=== PATIENT | male | born 1980 | race Caucasian/White ===

== ENCOUNTER 2019-01-30 19:18 | Emergency (ER) | payer SELFPAY ==
[2019-01-30] MEDS ORDERED: Bacitracin Oint 1 GM U/D Packet TOP ONE (20:06)
[2019-01-30] MEDS ORDERED: Lidocaine 1% 20 ML MDV INJECT ONE (20:06)
--- NOTE | 2019-01-30 20:58 | EDM.PDOC ---
ED HPI GENERAL MEDICAL PROBLEM - General Chief Complaint: Laceration Stated Complaint: CUT ON LEG Time Seen by Provider: 01/30/19 19:57 Source of Information: Reports: Patient History Limitations: Reports: No Limitations - History of Present Illness INITIAL COMMENTS - FREE TEXT/NARRATIVE: This gentleman was at home and hit his right lower leg on a piece of metal sustained a laceration just inferior to the right tibial tuberosity. This happened just prior to arrival. - Related Data Allergies Allergy/AdvReac Type Severity Reaction Status Date / Time cefaclor [From Ceclor] Allergy Hives Verified 01/30/19 19:38 Home Meds: Home Meds Albuterol [Proventil HFA] 2 puff INH Q4H PRN 01/30/19 [History] Past Medical History - Past Health History Medical/Surgical History: Denies Medical/Surgical History Respiratory History: Reports: Asthma Social & Family History - Tobacco Use Smoking Status *Q: Never Smoker - Caffeine Use Caffeine Use: Reports: Energy Drinks - Recreational Drug Use Recreational Drug Use: No ED ROS GENERAL - Review of Systems Review Of Systems: ROS reveals no pertinent complaints other than HPI. ED EXAM, SKIN/RASH Exam: See Below Exam Limited By: No Limitations General Appearance: Alert, WD/WN Extremities: Other (There is a laceration which is chevron-shaped or arrowhead shaped with the point directed downwards each leg is 3 cm long for a total length of 6 cm. It's a full thickness down to the muscle fascia of the leg. Does not elkins any of the muscle fascia however. The wound is clean. Neurovascular tendon all intact) Course - Vital Signs Last Recorded V/S: Last Vital Signs Temp 36.6 C 01/30/19 19:48 Pulse 122 H 01/30/19 19:48 Resp 20 01/30/19 19:48 BP 134/84 01/30/19 19:48 Pulse Ox 95 01/30/19 19:48 - Orders/Labs/Meds Meds: Medications Discontinued Medications Generic Name Dose Route Start Last Admin Trade Name Freq PRN Reason Stop Dose Admin Bacitracin 1 dose 01/30/19 20:06 01/30/19 20:18 Bacitracin Oint 1 Gm TOP 01/30/19 20:07 1 dose ONETIME ONE Administration Lidocaine HCl 20 ml 01/30/19 20:06 01/30/19 20:19 Xylocaine 1% INJECT 01/30/19 20:07 20 ml ONETIME ONE Administration - Re-Assessments/Exams Free Text/Narrative Re-Assessment/Exam: 01/30/19 20:55 Procedure laceration repair: The wound was anesthetized with approximately 12 mL of 1% plain lidocaine. Once there was good local anesthesia the wound was then scrubbed with saline and a small amount of Hibiclens. The flap was lifted up that area was scrubbed and it was copiously lavaged with normal saline by syringe. Subcutaneous fascia was then closed with a total of 4 stitches of 4-0 Vicryl. A top stitch was then placed with running 3-0 Ethilon. Giving a good cosmetic result. Bacitracin ointment and a dressing were then applied. Wound care was discussed Departure - Departure Time of Disposition: 20:56 Disposition: Home, Self-Care 01 Condition: Fair Clinical Impression: Laceration of right lower leg - Discharge Information Referrals: PCP,None [Primary Care Provider] - Additional Instructions: Remove the dressing in 2 days. Then every day wash with soap and water or you can just wash it in the shower. Apply some antibiotic ointment and keep it covered with a dressing. See your Dr. or health care provider to have the sutures removed in 10 days. Watch for any signs of infection. Otherwise as long she keep the dressing clean and dry there are no limitations. You should not swim until at least several days after the sutures are removed however.
== END 2019-01-30 21:09 | disposition home or self-care (01) ==
LOC: JP.ED 19:18
DX: S81.811A Laceration without foreign body, right lower leg, initial encounter (principal); W26.9XXA Contact with unspecified sharp object(s), initial encounter
CPT/HCPCS: 12032; 99282; J2001